=== PATIENT | male | born 1970 | race Two or more races ===

== ENCOUNTER 2019-09-27 22:00 | Emergency (ER) | payer MEDICAID, OTHER ==
[~2019-09-27] VITALS: Ht 172.7 cm; Wt 95.3 kg
[2019-09-28 00:17] VITALS: BP 111/71
== END 2019-09-28 00:35 | disposition home or self-care (01) ==
LOC: ER 22:00
DX: S00.81XA Abrasion of other part of head, initial encounter (principal); W22.8XXA Striking against or struck by other objects, initial encounter; Y93.89 Activity, other specified; Y92.89 Other specified places as the place of occurrence of the external cause; Y99.8 Other external cause status